=== PATIENT | female | born 1995 | race Asian ===

== ENCOUNTER → 2016-04-30 | Outpatient (CLI) | payer MEDICAID ==
--- NOTE | 2016-04-30 16:42 | DX ---
Bilateral knees Indication: Worsening bilateral knee pain. Technique: Bilateral AP, lateral, and merchant views. Comparison: None. Findings: The normally mineralized bones are anatomically aligned. Specifically, the patellae are nor jeremie positioned on the merchant view. Joint spaces are preserved. No marginal erosions or osteophyte s. Impression: Normal knees. No arthropathy or evidence of patellofemoral tracking abnormality.
== END ==
LOC: BRMIMAGING 14:25
PROVIDERS: ATTEND Internal Medicine
DX: M25.561 Pain in right knee (principal); M25.562 Pain in left knee
CPT/HCPCS: 73562-PO